=== PATIENT | female | born 1965 | race Caucasian/White ===

== ENCOUNTER 2020-03-06 10:33 | Emergency (ER) | payer SELFPAY ==
--- NOTE | 2020-03-06 11:37 | RAD REPORT ---
EXAM DESCRIPTION: RAD -Hand Left 3 View - 03/06/2020 11:19 am CLINICAL HISTORY: Left hand pain status post injury FINDINGS: No fracture or dislocation is seen.
--- NOTE | 2020-03-06 11:45 | EDPHYS ---
Physician Documentation [facility] Name: Nafisa Paul Age: 54 yrs Sex: Female : 1965 Arrival Date: 03/06/2020 Time: 10:35 Bed 13 Private MD: Baljeet Larsen HPI: 03/06 11:00 This 54 yrs old Female presents to ER via Ambulatory with complaints of cp Finger Injury. 11:00 The patient or guardian reports injury. The complaints affect the left hand. Context: cp resulted from a crush injury, by a car door. Onset: The symptoms/episode began/occurred 2 day(s) ago. Associated signs and symptoms: Pertinent negatives: cyanosis distally, decreased sensation distally. 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 - Social history:: Smoking status: . ROS: 11:05 MS/extremity: Positive for contusion, ecchymosis, pain, of the left hand. cp 11:05 Constitutional: Negative for fever. cp 11:05 Neuro: Negative for numbness. 11:05 All other systems are negative. Exam: 11:10 Constitutional: The patient appears in no acute distress, alert, awake, well developed, cp well nourished. 11:10 Musculoskeletal/extremity: Extremities: grossly normal except: noted in the left hand: cp ecchymosis, pain, swelling, tenderness, left middle finger with painful ROM. Vital Signs: 10:38 BP 136 / 89; Pulse 58; Resp 17; Temp 97.8(TE); Pulse Ox 98% on R/A; Weight 88.45 kg tw2 (R); Height 5 ft. 5 in. (165.10 cm); Pain 3/10; 12:00 BP 137 / 71; Pulse 62; Resp 17; Temp 98; Pulse Ox 98% ; bp 10:38 Body Mass Index 32.45 (88.45 kg, 165.10 cm) tw2 MDM: 10:44 Patient medically screened. ko 11:00 Differential diagnosis: dislocation, closed fracture, contusion. cp 11:36 Test interpretation: by ED physician or midlevel provider: xrays of left hand negative cp for fracture. 11:45 Data reviewed: vital signs, nurses notes, radiologic studies, plain films. cp 11:45 Counseling: I had a detailed discussion with the patient and/or guardian regarding: the cp historical points, exam findings, and any diagnostic results supporting the discharge/admit diagnosis, radiology results, to return to the emergency department if symptoms worsen or persist or if there are any questions or concerns that arise at home. 03/06 10:54 Order name: XRAY Hand LEFT 3 View; Complete Time: 11:48 cp 03/06 11:48 Interpretation: Report reviewed. 03/06 11:36 Order name: Splint - Finger; Complete Time: 11:55 cp Administered Medications: 11:50 Drug: Ibuprofen 800 mg Route: PO; bp 12:09 Follow up: Response: Pain is decreased bp 11:50 Drug: Tylenol 1000 mg Route: PO; bp 12:09 Follow up: Response: Pain is decreased bp Disposition: 12:00 Chart complete. cp 03/07 06:53 Co-signature as Attending Physician, Baljeet Lyles MD I agree with the assessment and [facility] plan of care. Disposition: 03/06/20 11:45 Discharged to Home. Impression: Crushing injury of hand - left. - Condition is Stable. - Discharge Instructions: Crush Injury of the Hand. - Prescriptions for Ibuprofen 800 mg Oral Tablet - take 1 tablet by ORAL route every 8 hours As needed take with food; 30 tablet. Tramadol 50 mg Oral Tablet - take 1 tablet by ORAL route every 8 hours as needed; 12 tablet. - Medication Reconciliation Form, Thank You Letter, Antibiotic Education, Prescription Opioid Use form. - Follow up: Private Physician; When: 1 week; Reason: Worsening of condition. - Problem is new. - Symptoms have improved. Signatures: [facility] EDBaljeet Walker MD MD cha Page, Corey, PA PA cp Kusum Mcginnis, RN RN tw2 Eliseo Acosta, RN RN bp Corrections: (The following items were deleted from the chart) 03/06 11:38 11:37 This 54 yrs old Female presents to ER via Ambulatory with complaints of cp Finger Injury. cp 12:09 11:45 03/06/2020 11:45 Discharged to Home. Impression: Crushing injury of hand - left. bp Condition is Stable. Forms are Medication Reconciliation Form, Thank You Letter, Antibiotic Education, Prescription Opioid Use. Follow up: Private Physician; When: 1 week; Reason: Worsening of condition. Problem is new. Symptoms have improved. cp
--- NOTE | 2020-03-06 11:45 | ER ---
Nurse's Notes [facility] Name: Nafisa Paul Age: 54 yrs Sex: Female : 1965 Arrival Date: 03/06/2020 Time: 10:35 Bed 13 Private MD: Diagnosis: Crushing injury of hand-left Presentation: 03/06 10:38 Chief complaint: Patient states: my LEFT middle finger, i slammed it in a car door 2 tw2 days ago, i cant bend it it hurts, i have been wearing this splint since i did it. Coronavirus screen: At this time, the client does not indicate any symptoms associated with coronavirus-19. Ebola Screen: Patient denies travel to an Ebola-affected area in the 21 days before illness onset. Initial Sepsis Screen: Does the patient meet any 2 criteria? No. Patient's initial sepsis screen is negative. Does the patient have a suspected source of infection? No. Patient's initial sepsis screen is negative. Risk Assessment: Do you want to hurt yourself or someone else? Patient reports no desire to harm self or others. Onset of symptoms was March 06, 2020. 10:38 Method Of Arrival: Ambulatory tw2 10:38 Acuity: ALEJANDRO 4 tw2 Triage Assessment: 10:41 General: Appears in no apparent distress. Behavior is calm, cooperative, appropriate tw2 for age. Pain: Complains of pain in dorsal aspect of distal phalanx of left middle finger, dorsal aspect of middle phalanx of left middle finger, dorsal aspect of proximal phalanx of left middle finger, palmar aspect of distal phalanx of left middle finger, palmar aspect of middle phalanx of left middle finger and palmar aspect of proximal phalanx of left middle finger. Musculoskeletal: Range of motion: limited in DIP of left middle finger and PIP of left middle finger. Injury Description: Crush injury sustained to dorsal aspect of distal phalanx of left middle finger, dorsal aspect of middle phalanx of left middle finger, dorsal aspect of proximal phalanx of left middle finger, dorsal aspect of distal phalanx of left ring finger, dorsal aspect of middle phalanx of left ring finger, dorsal aspect of proximal phalanx of left ring finger, palmar aspect of distal phalanx of left ring finger, palmar aspect of middle phalanx of left ring finger, palmar aspect of proximal phalanx of left ring finger, palmar aspect of distal phalanx of left middle finger, palmar aspect of middle phalanx of left middle finger, palmar aspect of proximal phalanx of left middle finger and left ring fingernail. 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 - Social history:: Smoking status: . Screenin:45 Abuse screen: Denies threats or abuse. Denies injuries from another. Nutritional bp screening: No deficits noted. Tuberculosis screening: No symptoms or risk factors identified. Fall Risk None identified. Assessment: 10:45 General: SEE TRIAGE NOTE. bp 12:07 Reassessment: PT D/C HOME AMBULATORY, DX WITH CRUSH INJURY TO FINGER. bp Vital Signs: 10:38 BP 136 / 89; Pulse 58; Resp 17; Temp 97.8(TE); Pulse Ox 98% on R/A; Weight 88.45 kg tw2 (R); Height 5 ft. 5 in. (165.10 cm); Pain 3/10; 12:00 BP 137 / 71; Pulse 62; Resp 17; Temp 98; Pulse Ox 98% ; bp 10:38 Body Mass Index 32.45 (88.45 kg, 165.10 cm) tw2 ED Course: 10:35 Patient arrived in ED. ag3 10:39 Triage completed. tw2 10:40 Arm band placed on. tw2 10:43 Baljeet Brannon PA is [facility]. cp 10:43 Baljeet Lyles MD is Attending Physician. cp 10:45 Patient has correct armband on for positive identification. Bed in low position. Call bp light in reach. Side rails up X2. 10:46 Eliseo Acosta, RN is Primary Nurse. bp 11:19 XRAY Hand LEFT 3 View In Process Unspecified. EDMS 11:55 Aluminum finger splint applied to palmar aspect of middle phalanx of left ring finger, mh5 palmar aspect of proximal phalanx of left ring finger, palmar aspect of middle phalanx of left middle finger and palmar aspect of proximal phalanx of left middle finger. 12:00 No provider procedures requiring assistance completed. Patient did not have IV access bp during this emergency room visit. Administered Medications: 11:50 Drug: Ibuprofen 800 mg Route: PO; bp 12:09 Follow up: Response: Pain is decreased bp 11:50 Drug: Tylenol 1000 mg Route: PO; bp 12:09 Follow up: Response: Pain is decreased bp Outcome: 11:45 Discharge ordered by MD. cp 12:00 Discharged to home ambulatory. bp 12:00 Condition: stable 12:00 Discharge instructions given to patient, Instructed on discharge instructions, follow up and referral plans. medication usage, Demonstrated understanding of instructions, follow-up care, medications, splint care, Prescriptions given X 2. 12:09 Patient left the ED. bp Signatures: Dispatcher [employer] EDMS Baljeet Brannon PA PA cp Wise, Tara, RN RN tw2 Judy Koehler 5 Eliseo Acosta, RN RN bp Leonor Tavarez 3
[2020-03-06] MEDS ORDERED: ACETAMINOPHEN 500 MG TAB ONE (12:01)
[2020-03-06] MEDS ORDERED: IBUPROFEN 400 MG TAB ONE (12:02)
== END 2020-03-06 12:09 | disposition home or self-care (01) ==
LOC: ER 10:33
DX: S67.22XA Crushing injury of left hand, initial encounter (principal); W23.1XXA Caught, crushed, jammed, or pinched between stationary objects, initial encounter; Y93.9 Activity, unspecified; Y92.9 Unspecified place or not applicable; Z88.0 Allergy status to penicillin; Z88.1 Allergy status to other antibiotic agents; Z88.2 Allergy status to sulfonamides; Z88.8 Allergy status to other drugs, medicaments and biological substances; Z91.041 Radiographic dye allergy status; Z91.048 Other nonmedicinal substance allergy status
CPT/HCPCS: 99284

== ENCOUNTER 2020-03-20 05:21 | Inpatient (IN) | payer SELFPAY ==
--- OUTSIDE RECORDS SUMMARY | 2020-03-20 05:23 | XMS REPORT | Continuity of Care Document ---
:1965 Author Organization [facility] t Address [address] [place] [id number] Care Team Providers Name Role Phone Taras Juares Attending Clinician Problems This patient has no known problems. Allergies, Adverse Reactions, Alerts This patient has no known allergies or adverse reactions. Medications This patient has no known medications. Procedures This patient has no known procedures. Encounters Start End Encounter Admission Attending Care Care Encounter Source Date/Time Date/Time Type Type Clinicians Facility Department ID 2019-09-05 2019-09-05 Office Mallorie [facility] [id number] 08:17:09 09:06:29 Visit Dinorah Grajeda [employer] [id number] [facility] [id number] MATERNAL [id number] & CHILD [address] [place] [address] Results This patient has no known results.
[2020-03-20 06:06] LABS: Absolute Lymphocytes (CBC) 2.4 K/uL (0.7-4.9); Basophils % 0.4 % (0-1.3); Hematocrit 37.8 % (36.0-45.0); Lymphocytes % 42.1 % (15.3-44.8); MPV 8.8 fL (7.6-11.3); RBC Red Blood Cell Count 4.14 M/uL (3.86-4.86)
[2020-03-20 06:13] LABS: Protime INR 0.94
[2020-03-20] MEDS ORDERED: NA CHLORIDE 0.9% 1,000 ML ONE (06:17)
[2020-03-20 06:42] LABS: BUN Blood Urea Nitrogen 14 mg/dL (7-18); Bicarbonate 28 mmol/L (21-32); Glucose Level 107 mg/dL (74-106); Magnesium 2.5 mg/dL (1.8-2.4); Potassium 3.9 mmol/L (3.5-5.1); Sodium Level 144 mmol/L (136-145); Troponin (Emerg Dept Use Only) < 0.02 ng/mL (0.0-0.045)
[2020-03-20] MEDS ORDERED: ASPIRIN 81 MG CHEWABLE TABLET ONE (06:47)
--- NOTE | 2020-03-20 07:07 | ER ---
Nurse's Notes [facility] Name: Nafisa Paul Age: 54 yrs Sex: Female : 1965 Arrival Date: 03/20/2020 Time: 05:29 Bed 17 Private MD: Diagnosis: Weakness Presentation: 03/20 05:20 Chief complaint: EMS states: Pt reports blurry vision and generalized weakness. Started jb4 shaking about half way here. Reports having 3 alcoholic beverages tonight. VS 127/73, 95, 99%, 97.4, BGL 104. 05:20 Coronavirus screen: Client denies travel out of the [place] in the last 14 days. At this jb4 time, the client does not indicate any symptoms associated with coronavirus-19. Ebola Screen: No symptoms or risks identified at this time. An acute neurological deficit is present. The patients blood glucose was checked before arriving to the hospital and was found to be normal. Initial Sepsis Screen: Does the patient meet any 2 criteria? No. Patient's initial sepsis screen is negative. Does the patient have a suspected source of infection? No. Patient's initial sepsis screen is negative. Risk Assessment: Do you want to hurt yourself or someone else? Patient reports no desire to harm self or others. Onset of symptoms was March 20, 2020 at 02:00. Transition of care: patient was not received from another setting of care. 05:20 Method Of Arrival: EMS: [facility] jb4 05:20 Acuity: ALEJANDRO 2 jb4 Stroke Activation: Symtpom onset >3 hours and < 6 hours Physician: Stroke Attending; Name: Eliud; Notified At: 05:25; Arrived At: 05:25 Physician: Chief Stroke Resident; Name: ; Notified At: 05:25; Arrived At: Physician: Stroke Resident; Name: ; Notified At: 05:25; Arrived At: Physician: ED Attending; Name: ; Notified At: 05:25; Arrived At: Physician: ED Resident; Name: ; Notified At: 05:25; Arrived At: Historical: - Allergies: 05:20 Bactrim; jb4 05:20 Benadryl; jb4 05:20 Iodine; jb4 05:20 Iodinated Contrast Media - IV Dye; jb4 05:20 Levaquin; jb4 05:20 PENICILLINS; jb4 05:20 Phenergan; jb4 05:20 Sulfa (Sulfonamide Antibiotics); jb4 05:20 Zofran; jb4 - PMHx: 05:20 FACTOR V - BLOOD DISORDER; stroke; jb4 - PSHx: 05:20 Bladder surgery; left ankle; Fallopian tube reconstruction; Cholecystectomy; jb4 Appendectomy; - Immunization history:: Adult Immunizations up to date. - Social history:: Smoking status: Patient denies any tobacco usage or history of. Patient uses alcohol, occasionally. Patient/guardian denies using street drugs, Patient/guardian denies using alcohol, The patient lives with family. - Family history:: not pertinent. Screenin:00 Abuse screen: Denies threats or abuse. Denies injuries from another. Nutritional bp screening: No deficits noted. Tuberculosis screening: No symptoms or risk factors identified. Fall Risk No fall in past 12 months (0 pts). Secondary diagnosis (15 points) CVA, IV access (20 points). Ambulatory Aid- None/Bed Rest/Nurse Assist (0 pts). Gait- Normal/Bed Rest/Wheelchair (0 pts) Mental Status- Oriented to own ability (0 pts). Total Man Fall Scale indicates Low Risk Score (25-44 pts). Fall prevention measures have been instituted. Side Rails Up X 2 Placed close to Nursing Station Frequent Obs/Assesments occuring As available Patient and Family Educated on Fall Prevention Program and strategies. Assessment: 05:25 VAN Scoring: Arm Drift: Patients demonstrates NO arm weakness. Patient is VAN Negative. jb4 05:25 General: Appears in no apparent distress. uncomfortable, Behavior is cooperative, jb4 anxious, Pt reports having blurry vision that is worse on the left and the inability to see above her nose. PT is unable to track object moving in front of her. Pupils are PERRLA. Pt unable to move her legs but maintains sensation. Pt is shaking, reports not being able to stop. Pain: Denies pain. Neuro: Level of Consciousness is awake, alert, obeys commands, Oriented to person, place, time, situation, [employer] are weak bilaterally Weakness in bilateral hand(s) leg(s) foot/feet Speech with expressive aphasia noted, Facial symmetry appears normal, Pupils are PERRLA, Intact. Cardiovascular: Patient's skin is warm and dry. Respiratory: Airway is patent Respiratory effort is even, unlabored, Respiratory pattern is regular, symmetrical. GI: No signs and/or symptoms were reported involving the gastrointestinal system. : No signs and/or symptoms were reported regarding the genitourinary system. EENT: No signs and/or symptoms were reported regarding the EENT system. Derm: Skin is intact, Skin is pink, warm \T\ dry. Musculoskeletal: Circulation, motion, and sensation intact. Range of motion: intact in all extremities. 06:30 Reassessment: Patient appears in no apparent distress at this time. Patient and/or jb4 family updated on plan of care and expected duration. Pain level reassessed. Patient is alert, oriented x 3, equal unlabored respirations, skin warm/dry/pink. PT is now able to see above her nose, is able to track objects with her eyes, pupils remain PERRLA, shaking has decrease, speech has improved, remains unable to move her legs. Patient states symptoms have improved. 07:00 Reassessment: RECD REPORT FROM [facility]. 54YO WF P/W WEAKNESS AND TREMORS, H/O CVA. bp ADMIT INITIATED. 07:00 The patient has not been NPO before screening. The patient is alert, and able to follow bp commands. The patient does not exhibit slurred or garbled speech. The patient is not exhibiting difficulty speaking. The patient does not exhibit difficulty understanding words. The patient is able to swallow own secretions with no drooling or need for suction. Patient tolerated one teaspoon of water. No drooling, immediate coughing, gurgling, or clearing of the throat was noted. The patient tolerated 90mL of water. No drooling, immediate coughing, gurgling, or clearing of the throat was noted. The patient passed the bedside swallow screening. Oral medications may be given as ordered. Contact Physician for further diet orders. Provider notified of bedside swallow screening results: Makayla Kline MD. T-PA (Activase) Screening: Contraindications: Other: DEFERRED BY NEURO C/S. Neuro: Level of Consciousness is awake, alert, obeys commands, Oriented to Appropriate for age. 07:29 Reassessment: DR ARDON AT B/S FOR EVAL. bp 09:41 Reassessment: DAUGHTER: MARK [phone]. bp 10:00 Reassessment: PT TO [place]. Neuro: Level of Consciousness is awake, alert, obeys commands, bp Oriented to person, place, time, situation, Speech is normal, TREMORS RESOLVED AT THIS TIME. 12:00 Reassessment: PT CURRENTLY IN MRI. bp 13:00 Reassessment: Patient appears in no apparent distress at this time. No changes from bp previously documented assessment. Patient and/or family updated on plan of care and expected duration. Pain level reassessed. PT RETURNED FROM MRI. RESULTS PENDING FOR OFFICIAL DISPO. Vital Signs: 05:20 BP 126 / 74; Pulse 76; Resp 20; Pulse Ox 99% on R/A; jb4 07:00 BP 113 / 73; Pulse 69; Resp 16; Pulse Ox 98% ; bp 09:00 BP 101 / 55; Pulse 67; Resp 17; Pulse Ox 100% ; bp 11:00 BP 101 / 60; Pulse 78; Resp 16; Pulse Ox 95% ; bp 13:00 BP 122 / 67; Pulse 65; Resp 17; Pulse Ox 100% ; bp NIH Stroke Scale Scores: 05:25 NIHSS Score: 12 jb4 10:00 NIHSS Score: 0 bp ED Course: 05:20 Arm band placed on right wrist. jb4 05:29 Patient arrived in ED. ag3 05:30 Initial lab(s) drawn, by hi, sent to lab. Inserted saline lock: 20 gauge in right jb4 antecubital area, using aseptic technique. Blood collected. 05:33 Makayla Kline MD is Attending Physician. ma2 05:42 CT Stroke Brain w/o Contrast In Process Unspecified. EDMS 05:57 Que Sesay, RN is Primary Nurse. jb4 06:16 Triage completed. jb4 06:23 Stroke CXR 1 View In Process Unspecified. EDMS 07:00 Patient has correct armband on for positive identification. Bed in low position. Call bp light in reach. Side rails up X2. 07:06 Didier Ardon DO is Hospitalizing Provider. ma2 07:16 Primary Nurse role handed off by Que Sesay, RN bp 07:16 Eliseo Acosta, RN is Primary Nurse. bp 09:35 Chest Single View In Process Unspecified. EDMS 11:01 Extrem Venous W Compress Anselmo In Process Unspecified. EDMS 11:19 Carotid Artery Bilateral In Process Unspecified. EDMS 12:16 Brain Wo Cont In Process Unspecified. EDMS 18:06 No provider procedures requiring assistance completed. Patient admitted, IV remains in bp place. Administered Medications: 06:12 Drug: NS 0.9% 1000 ml Route: IV; Rate: 125 ml/hr; Site: right antecubital; jb4 18:06 Follow up: IV Status: Infusion continued upon admission bp 06:40 Drug: Aspirin Chewable Tablet 324 mg Route: PO; jb4 07:42 Follow up: Response: No adverse reaction bp Point of Care Testing: Blood Glucose: 05:20 Blood Glucose: 109 mg/dL; jb4 Ranges: Outcome: 07:06 Decision to Hospitalize by Provider. ma2 18:06 Admitted to Med/surg accompanied by tech, via wheelchair, room 216, with chart, Report bp called to ZAC SEE 18:06 Condition: stable 18:06 Instructed on the need for admit. 18:23 Patient left the ED. bp NIH Stroke Scale - NIH Stroke Score Date: 03/20/2020 Time: 05:25 Total Score = 12 1a. Level of Consciousness (LOC) - 0(Alert) 1b. Level of Consciousness (LOC) (Year \T\ Age) - 0(Both) 1c. LOC Commands (Open \T\ Closes Eyes/Resident Care Manager) - 0(Both) 2. Best Gaze (Lateral Gaze Paresis) - 1(Partial gaze palsy) 3. Visual Field Loss - 2(Complete hemianopia) 4. Facial Palsy - 0(Normal) 5a. Left Arm: Motor (10-second hold) - 0(No drift) 5b. Right Arm: Motor (10-second hold) - 0(No drift) 6a. Left Leg: Motor (5-second hold - always test supine) - 3(No effort against gravity) 6b. Right Leg: Motor (5-second hold - always test supine) - 3(No effort against gravity) 7. Limb Ataxia (finger/nose \T\ heel/alvarez - test with eyes open) - 2(Present in two limbs) 8. Sensory Loss (pinprick arms/legs/face) - 0(Normal) 9. Best Language: Aphasia (description/naming/reading) - 1(Mild to moderate aphasia) 10. Dysarthria (speech clarity - read or repeat words) - 0(Normal) 11. Extinction and Inattention (visual/tactile/auditory/spatial/personal) - 0(No abnormality) Initials: jb4 NIH Stroke Scale - NIH Stroke Score Date: 03/20/2020 Time: 10:00 Total Score = 0 1a. Level of Consciousness (LOC) - 0(Alert) 1b. Level of Consciousness (LOC) (Year \T\ Age) - 0(Both) 1c. LOC Commands (Open \T\ Closes Eyes/Resident Care Manager) - 0(Both) 2. Best Gaze (Lateral Gaze Paresis) - 0(Normal) 3. Visual Field Loss - 0(No visual loss) 4. Facial Palsy - 0(Normal) 5a. Left Arm: Motor (10-second hold) - 0(No drift) 5b. Right Arm: Motor (10-second hold) - 0(No drift) 6a. Left Leg: Motor (5-second hold - always test supine) - 0(No drift) 6b. Right Leg: Motor (5-second hold - always test supine) - 0(No drift) 7. Limb Ataxia (finger/nose \T\ heel/alvarez - test with eyes open) - 0(Absent) 8. Sensory Loss (pinprick arms/legs/face) - 0(Normal) 9. Best Language: Aphasia (description/naming/reading) - 0(No aphasia) 10. Dysarthria (speech clarity - read or repeat words) - 0(Normal) 11. Extinction and Inattention (visual/tactile/auditory/spatial/personal) - 0(No abnormality) Initials: bp Signatures: Dispatcher [employer] EDMS Que Sesay RN RN jb4 Eliseo Acosta, ESA RN bp Makayla Kline MD MD ma2 Leonor Tavarez ag3
--- NOTE | 2020-03-20 07:07 | EDPHYS ---
Physician Documentation [facility] [place] Name: Nafisa Paul Age: 54 yrs Sex: Female : 1965 Arrival Date: 03/20/2020 Time: 05:29 Bed 17 Private MD: ED Physician Makayla Kline HPI: 03/20 07:00 This 54 yrs old Female presents to ER via EMS with complaints of Weakness. ma2 07:00 The patient presents to the emergency department with weakness of the a speech or ma2 higher order brain function problem. Onset: The symptoms/episode began/occurred suddenly, 4 hour(s) ago. Associated signs and symptoms: Pertinent negatives: dizziness, neck stiffness, seizure. Severity of symptoms: At their worst the symptoms were moderate in the emergency department the symptoms have improved. Patient's baseline: Neuro: alert and fully oriented, Speech: normal. Current symptoms: dysphasia, visual disturbance. The patient has experienced similar episodes in the past. 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 her symptoms are rapidly improving . Historical: - Allergies: 05:20 Bactrim; jb4 05:20 Benadryl; jb4 05:20 Iodine; jb4 05:20 Iodinated Contrast Media - IV Dye; jb4 05:20 Levaquin; jb4 05:20 PENICILLINS; jb4 05:20 Phenergan; jb4 05:20 Sulfa (Sulfonamide Antibiotics); jb4 05:20 Zofran; jb4 - PMHx: 05:20 FACTOR V - BLOOD DISORDER; stroke; jb4 - PSHx: 05:20 Bladder surgery; left ankle; Fallopian tube reconstruction; Cholecystectomy; jb4 Appendectomy; - Immunization history:: Adult Immunizations up to date. - Social history:: Smoking status: Patient denies any tobacco usage or history of. Patient uses alcohol, occasionally. Patient/guardian denies using street drugs, Patient/guardian denies using alcohol, The patient lives with family. - Family history:: not pertinent. ROS: 07:00 Constitutional: Negative for fever, chills, and weight loss. ma2 07:00 All other systems are negative. Exam: 07:00 Constitutional: This is a well developed, well nourished patient who is awake, alert, ma2 and in no acute distress. Head/Face: Normocephalic, atraumatic. Eyes: Pupils equal round and reactive to light, extra-ocular motions intact. Lids and lashes normal. Conjunctiva and sclera are non-icteric and not injected. Cornea within normal limits. Periorbital areas with no swelling, redness, or edema. ENT: Nares patent. No nasal discharge, no septal abnormalities noted. Tympanic membranes are normal and external auditory canals are clear. Oropharynx with no redness, swelling, or masses, exudates, or evidence of obstruction, uvula midline. Mucous membranes moist. Neck: Trachea midline, no thyromegaly or masses palpated, and no cervical lymphadenopathy. Supple, full range of motion without nuchal rigidity, or vertebral point tenderness. No Meningismus. Chest/axilla: Normal chest wall appearance and motion. Nontender with no deformity. No lesions are appreciated. Cardiovascular: Regular rate and rhythm with a normal S1 and S2. No gallops, murmurs, or rubs. Normal PMI, no JVD. No pulse deficits. Respiratory: Lungs have equal breath sounds bilaterally, clear to auscultation and percussion. No rales, rhonchi or wheezes noted. No increased work of breathing, no retractions or nasal flaring. Abdomen/GI: Soft, non-tender, with normal bowel sounds. No distension or tympany. No guarding or rebound. No evidence of tenderness throughout. MS/ Extremity: Pulses equal, no cyanosis. Neurovascular intact. Full, normal range of motion. Neuro: Awake and alert, GCS 15, oriented to person, place, time, and situation. Cranial nerves II-XII grossly intact. charging plug placer is 2/2 bilateral however arm and elbows are 5/5 bilaterally, she is uncoopertaive with LE exam, she has slurred speach, smelled alcohol and crying.. gait not tested Vital Signs: 05:20 BP 126 / 74; Pulse 76; Resp 20; Pulse Ox 99% on R/A; jb4 07:00 BP 113 / 73; Pulse 69; Resp 16; Pulse Ox 98% ; bp 09:00 BP 101 / 55; Pulse 67; Resp 17; Pulse Ox 100% ; bp 11:00 BP 101 / 60; Pulse 78; Resp 16; Pulse Ox 95% ; bp 13:00 BP 122 / 67; Pulse 65; Resp 17; Pulse Ox 100% ; bp NIH Stroke Scale Scores: 05:25 NIHSS Score: 12 jb4 10:00 NIHSS Score: 0 bp MDM: 05:33 Patient medically screened. [facility] 07:00 Data reviewed: vital signs, nurses notes, lab test result(s), EKG, radiologic studies, [facility] ct does not show any abnormality, she is not a candidate for tpa as her deficits are not consistent with clinical stroke and her symptoms are rapidly improving, plan discussed and agreed by dr. caballero.. . 07:12 ED course: this is not clinically stroke and therefore no NIHS applicable here.. . md03/20 05:34 Order name: Troponin (emerg Dept Use Only); Complete Time: 07:06 [facility] 03/20 05:34 Order name: Magnesium; Complete Time: 07:06 [facility] 03/20 05:34 Order name: Basic Metabolic Panel; Complete Time: 07:06 md03/20 05:34 Order name: CBC with Diff; Complete Time: 07:06 md03/20 05:34 Order name: Protime (+inr); Complete Time: 07:06 [facility] 03/20 05:34 Order name: Ptt, Activated; Complete Time: 07:06 md03/20 05:41 Order name: UDS [facility] 03/20 06:04 Order name: Glucose, Ancillary Testing; Complete Time: 06:09 [facility] 03/20 06:24 Order name: ETOH Level [facility] 03/20 09:16 Order name: Anti-Thrombin III Activity [facility] 03/20 09:16 Order name: C-ANCA Anti-Proteinase 3 [facility] 03/20 09:16 Order name: Cardiolipin Antibodies G,M [facility] 03/20 09:18 Order name: Factor V Leiden Mutation [facility] 03/20 09:18 Order name: Folic Acid, (Folate) [facility] 03/20 09:18 Order name: Homocysteine [facility] 03/20 09:18 Order name: Miscellaneous Test Lab [facility] 03/20 09:18 Order name: P-ANCA Anti-Myeloperoxidase Ab [facility] 03/20 09:18 Order name: Protein C Antigen [facility] 03/20 09:18 Order name: Protein Electo w/M Eduar Serum [facility] 03/20 09:18 Order name: Protein S (Total [facility] 03/20 09:18 Order name: PROTHROMBIN GENE ANALYSIS (F2) [facility] 03/20 09:18 Order name: RPR [facility] 03/20 09:18 Order name: Vitamin B12 Level [facility] 03/20 09:18 Order name: Vitamin D, 25 ([place]), TOTAL [facility] 03/20 09:18 Order name: CBC with Automated Diff [facility] 03/20 09:18 Order name: CBC with Automated Diff [facility] 03/20 09:18 Order name: Comprehensive Metabolic Panel [facility] 03/20 09:18 Order name: Comprehensive Metabolic Panel [facility] 03/20 09:18 Order name: Lipid Profile [facility] 03/20 05:34 Order name: CT Stroke Brain w/o Contrast [facility] 03/20 05:34 Order name: Stroke CXR 1 View [facility] 03/20 05:34 Order name: Accucheck; Complete Time: 07:12 [facility] 03/20 05:34 Order name: Cardiac monitoring; Complete Time: 07:13 [facility] 03/20 05:34 Order name: EKG - Nurse/Tech; Complete Time: 07:13 [facility] 03/20 05:34 Order name: IV Saline Lock; Complete Time: 07:13 [facility] 03/20 05:34 Order name: Labs collected and sent; Complete Time: 07:13 [facility] 03/20 05:34 Order name: NPO; Complete Time: 07:13 [facility] 03/20 05:34 Order name: O2 Per Protocol; Complete Time: 07:13 [facility] 03/20 05:34 Order name: O2 Sat Monitoring; Complete Time: 07:13 [facility] 03/20 09:16 Order name: Brain Wo Cont [facility] 03/20 09:16 Order name: Carotid Artery Bilateral [facility] 03/20 09:18 Order name: Patient Safety Orders [facility] 03/20 09:18 Order name: Physical Therapy Consult [facility] 03/20 09:18 Order name: Social Service Consult [facility] 03/20 09:18 Order name: Speech Therapy Consult [facility] 03/20 09:18 Order name: NPO [facility] 03/20 09:18 Order name: Echo with Doppler [facility] 03/20 09:18 Order name: EKG Electrocardiogram [facility] 03/20 09:18 Order name: Lipid Profile [facility] 03/20 09:18 Order name: Magnesium [facility] 03/20 09:18 Order name: Magnesium [facility] 03/20 09:18 Order name: T4,Total [facility] 03/20 09:18 Order name: T4,Total [facility] 03/20 09:18 Order name: Thyroid Stimulating Hormone [facility] 03/20 09:18 Order name: Thyroid Stimulating Hormone [facility] 03/20 09:18 Order name: Extrem Venous W Compress Anselmo [facility] 03/20 09:35 Order name: Chest Single View [facility] 03/20 05:34 Order name: Stroke Swallow Screen; Complete Time: 07:13 ma2 03/20 05:35 Order name: Urine Dipstick-Ancillary (obtain specimen); Complete Time: 07:38 ma2 Administered Medications: 06:12 Drug: NS 0.9% 1000 ml Route: IV; Rate: 125 ml/hr; Site: right antecubital; jb4 18:06 Follow up: IV Status: Infusion continued upon admission bp 06:40 Drug: Aspirin Chewable Tablet 324 mg Route: PO; jb4 07:42 Follow up: Response: No adverse reaction bp Point of Care Testing: Blood Glucose: 05:20 Blood Glucose: 109 mg/dL; jb4 Ranges: Critical Glucose Levels:Adult <50 mg/dl or >400 mg/dl <40 mg/dl or >180 mg/dl Disposition: 03/20/20 07:06 Hospitalization ordered by Didier Wakefield for Observation. Preliminary diagnosis is Weakness. - Bed requested for Telemetry/MedSurg (observation). - Status is Observation. bp - Condition is Stable. - Problem is new. - Symptoms are unchanged. NIH Stroke Scale - NIH Stroke Score Date: 03/20/2020 Time: 05:25 Total Score = 12 1a. Level of Consciousness (LOC) - 0(Alert) 1b. Level of Consciousness (LOC) (Year \T\ Age) - 0(Both) 1c. LOC Commands (Open \T\ Closes Eyes/Blending Tank Helper) - 0(Both) 2. Best Gaze (Lateral Gaze Paresis) - 1(Partial gaze palsy) 3. Visual Field Loss - 2(Complete hemianopia) 4. Facial Palsy - 0(Normal) 5a. Left Arm: Motor (10-second hold) - 0(No drift) 5b. Right Arm: Motor (10-second hold) - 0(No drift) 6a. Left Leg: Motor (5-second hold - always test supine) - 3(No effort against gravity) 6b. Right Leg: Motor (5-second hold - always test supine) - 3(No effort against gravity) 7. Limb Ataxia (finger/nose \T\ heel/alvarez - test with eyes open) - 2(Present in two limbs) 8. Sensory Loss (pinprick arms/legs/face) - 0(Normal) 9. Best Language: Aphasia (description/naming/reading) - 1(Mild to moderate aphasia) 10. Dysarthria (speech clarity - read or repeat words) - 0(Normal) 11. Extinction and Inattention (visual/tactile/auditory/spatial/personal) - 0(No abnormality) Initials: marco NIH Stroke Scale - NIH Stroke Score Date: 03/20/2020 Time: 10:00 Total Score = 0 1a. Level of Consciousness (LOC) - 0(Alert) 1b. Level of Consciousness (LOC) (Year \T\ Age) - 0(Both) 1c. LOC Commands (Open \T\ Closes Eyes/Blending Tank Helper) - 0(Both) 2. Best Gaze (Lateral Gaze Paresis) - 0(Normal) 3. Visual Field Loss - 0(No visual loss) 4. Facial Palsy - 0(Normal) 5a. Left Arm: Motor (10-second hold) - 0(No drift) 5b. Right Arm: Motor (10-second hold) - 0(No drift) 6a. Left Leg: Motor (5-second hold - always test supine) - 0(No drift) 6b. Right Leg: Motor (5-second hold - always test supine) - 0(No drift) 7. Limb Ataxia (finger/nose \T\ heel/alvarez - test with eyes open) - 0(Absent) 8. Sensory Loss (pinprick arms/legs/face) - 0(Normal) 9. Best Language: Aphasia (description/naming/reading) - 0(No aphasia) 10. Dysarthria (speech clarity - read or repeat words) - 0(Normal) 11. Extinction and Inattention (visual/tactile/auditory/spatial/personal) - 0(No abnormality) Initials: bp Signatures: Dispatcher [employer] EDKarlie Bowling, RN RN aa5 Que Sesay RN RN jb4 Judy Koehler 5 Eliseo Acosta, ESA SEE bp Makayla Kline MD MD ma2 Corrections: (The following items were deleted from the chart) 09:16 07:40 URINE DIPSTICK--ANCILLARY+U.LAB.BRZ ordered. EDDE EDMS 09:34 09:16 Chest Pa And Lat (2 Views) ordered. EDDE EDMS 13:57 07:06 Hospitalization Ordered by Didier Wakefield DO for Observation. Preliminary [facility] diagnosis is Weakness. Bed requested for Telemetry/MedSurg (observation). Status is Observation. Condition is Stable. Problem is new. Symptoms are unchanged. ma2 15:50 13:57 03/20/2020 07:06 Hospitalization Ordered by Didier Wakefield DO for aa5 Observation. Preliminary diagnosis is Weakness. Bed requested for [facility] ER HOLD. Status is Observation. Condition is Stable. Problem is new. Symptoms are unchanged. 5 18:23 15:50 03/20/2020 07:06 Hospitalization Ordered by Didier Wakefield DO for bp Observation. Preliminary diagnosis is Weakness. Bed requested for Telemetry/MedSurg (observation). Status is Observation. Condition is Stable. Problem is new. Symptoms are unchanged. aa5
[2020-03-20 07:54] LABS: Barbiturates NEGATIVE (NEGATIVE); Benzodiazepines NEGATIVE (NEGATIVE); Cocaine NEGATIVE (NEGATIVE); METHAMPHETAM NEGATIVE (NEGATIVE); Methadone NEGATIVE (NEGATIVE); Opiates NEGATIVE (NEGATIVE); Phencyclidine NEGATIVE (NEGATIVE); THC Cannibis NEGATIVE (NEGATIVE)
--- NOTE | 2020-03-20 08:07 | RAD REPORT ---
EXAM DESCRIPTION: Pat Single View03/20/2020 6:23 am CLINICAL HISTORY: Congestion COMPARISON: 2016 FINDINGS: The left base is hazy probably secondary to overlying soft tissue The lungs appear grossly clear. The heart is normal size IMPRESSION: No acute abnormalities displayed. If the patient's symptoms persist PA and lateral ches t series would be recommended
[2020-03-20] MEDS: ASPIRIN EC 81 MG TAB PO SCH (09:15)
[2020-03-20] MEDS: NA CHLORIDE 0.9% 1,000 ML IV SCH (09:15)
[2020-03-20] MEDS ORDERED: ACETAMINOPHEN 500 MG TAB PO PRN (09:15)
--- NOTE | 2020-03-20 09:40 | RAD REPORT ---
EXAM DESCRIPTION: Pat Single View03/20/2020 9:35 am CLINICAL HISTORY: CVA COMPARISON: March 20, 2020 FINDINGS: The lungs appear clear of acute infiltrate. The heart is normal size IMPRESSION: No acute abnormalities displayed
[2020-03-20 11:04] LABS: Folic Acid, (Folate) 3.9 ng/mL (3.1-17.5)
--- NOTE | 2020-03-20 11:38 | RAD REPORT ---
EXAM DESCRIPTION: USExtrem Venous W Compress Bil03/20/2020 11:01 am CLINICAL HISTORY: Leg swelling COMPARISON: 2014 FINDINGS: The common femoral, superficial femoral, popliteal and posterior tibial veins bilaterally are compressible and demonstrate augmentation. Doppler demonstrates good flow. IMPRESSION: No evidence of deep venous thrombosis involving either lower extremity.
--- NOTE | 2020-03-20 11:46 | RAD REPORT ---
EXAM DESCRIPTION: USCarotid Artery Bilateral03/20/2020 11:19 am CLINICAL HISTORY: Slurred speech COMPARISON: None FINDINGS: The velocity of the right internal carotid artery equals 76 cm/sec. The right ICA/CCA rati o 0.8 The velocity of the left internal carotid artery equals 120 cm/sec. The left ICA/CCA ratio 1.3 Plaque is not visualized within the carotid arteries The vertebral arteries demonstrate antegrade flow IMPRESSION: Unremarkable exam NASCET criteria used. Mild 0-49% stenosis Moderate 50-69% stenosis Severe 70-99% stenosis
--- NOTE | 2020-03-20 12:21 | P.HP ---
Certification for Inpatient Patient admitted to: Observation With expected LOS: <2 Midnights Patient will require the following post-hospital care: None Practitioner: I am a practitioner with admitting privileges, knowledge of patient current condition, hospital course, and medical plan of care. Services: Services provided to patient in accordance with Admission requirements found in Title 42 Section 412.3 of the Code of Federal Regulations Patient History Date of Service: 03/20/20 Primary Care Provider: None Reason for admission: Upper/lower extremity weakness, blurry vision, slurred speech History of Present Illness: 54-year-old female with history of factor 5 Leiden, prior TIA, alcohol abuse. Patient presented to the emergency room after reports of upper/lower extremity weakness bilateral, blurry vision, and slurred speech. She reports that she was dropping off her son at home around 3:00 a.m. after she got off work. 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 She started to notice increased weakness. Her symptoms got worse. She was brought in to the emergency room for further evaluation. Patient admitted drinking a shot of alcohol along with 1 cup of rum. Patient denied any significant chest pain. In the ER patient was evaluated. No focal deficits noted. CBC unremarkable. Sodium 144, potassium 3.9, BUN 14, creatinine 0.8 with a GFR 67. Glucose 107. Troponin unremarkable. Alcohol level was elevated at 162. CT head unremarkable for any acute changes. Chest x-ray unremarkable. Patient was admitted for further evaluation. When I saw the patient ER, patient smelled of alcohol. Patient still reported weakness to the upper lower extremity. Patient reports seen Neurology in the past. Patient only takes aspirin at home. Patient has no PCP. Allergies diphenhydramine HCl [From Benadryl] Allergy (Verified 02/21/15 23:31) Anaphylaxis Iodinated Contrast Media Allergy (Verified 02/21/15 23:31) Anaphylaxis iodine [Iodine] Allergy (Verified 02/21/15 23:31) Anaphylaxis levofloxacin [From Levaquin] Allergy (Verified 02/21/15 23:31) Anaphylaxis Penicillins Allergy (Verified 02/21/15 23:31) Anaphylaxis promethazine [From Phenergan] Allergy (Unverified 08/04/15 00:10) Unknown pseudoephedrine HCl [From Sudafed] Allergy (Verified 02/22/15 02:23) Unknown Sulfa (Sulfonamide Antibiotics) [Sulfa(Sulfonamide Antibiotics)] Allergy (Verified 02/21/15 23:31) Anaphylaxis sulfamethoxazole [From Bactrim] Allergy (Verified 02/21/15 23:31) Anaphylaxis trimethoprim [From Bactrim] Allergy (Verified 02/21/15 23:31) Anaphylaxis ondansetron HCl [From Zofran (as hydrochloride)] Adverse Reaction (Verified 02/21/15 23:36) Hives Dye Allergy (Uncoded 04/16/15 18:25) Unknown Zofran Allergy (Uncoded 04/16/15 18:25) Unknown Zofran (as Allergy (Uncoded 08/04/15 00:10) Unknown Home medications list reviewed: Yes Home Medications: Duloxetine [Cymbalta *] 30 mg PO DAILY 02/21/15 Omeprazole 40 mg PO DAILY 02/21/15 Pantoprazole Sodium 40 mg PO DAILY 02/21/15 Tramadol HCl 50 mg PO PRN 02/21/15 - Past Medical/Surgical History Diabetic: No -: Factor 5 Leiden -: Alcohol abuse -: GERD with hiatal hernia -: Bladder sx -: Fallopian tube reconstruction -: Cholecysectomy -: Appendectomy -: Left ankle sx Psychosocial/ Personal History: 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 - Family History Mother -: Other (see notes) (CVA) - Social History Smoking Status: Never smoker Alcohol use: Yes CD- Drugs: No Caffeine use: Yes Place of Residence: Home Review of Systems General: Weakness, Malaise, As per HPI Eyes: Unremarkable ENT: As per HPI Respiratory: Unremarkable Cardiovascular: Unremarkable Genitourinary: Unremarkable Musculoskeletal: As per HPI Integumentary: Unremarkable Neurological: Weakness, As per HPI Lymphatics: Unremarkable Physical Examination - Physical Exam General: Alert, In no apparent distress, Oriented x3, Cooperative HEENT: Atraumatic, Normocephalic, Mucous membr. moist/pink Neck: Supple Respiratory: Clear to auscultation bilaterally, Normal air movement Cardiovascular: Normal pulses, Regular rate/rhythm Gastrointestinal: Normal bowel sounds, Soft and benign, Non-distended, No tenderness, No masses, No rebound, No guarding Musculoskeletal: No erythema, No tenderness, No warmth Integumentary: No erythema, No warmth, No cyanosis Neurological: Abnormal strength (Weakness noted to the upper, lower extremity. Poor safety intern noted. Patient not able to stand. Weakness noted throughout.) - Studies Laboratory Data (last 24 hrs) 03/20/20 05:50: PT 11.1, INR 0.94, APTT 24.9 03/20/20 05:50: WBC 5.6, Hgb 13.0, Hct 37.8, Plt Count 204 03/20/20 05:50: Sodium 144, Potassium 3.9, BUN 14, Creatinine 0.88, Glucose 107 H, Magnesium 2.5 H Assessment and Plan - Plan Impression: Bilateral upper/lower extremity weakness, blurry vision, slurred speech suspect related to alcohol intoxication versus other History of factor 5 Leiden History of TIA Plan: Patient will be admitted for further evaluation and treatment. Case discussed with Neurology. Will need to evaluate for TIA, CVA, alcohol intoxication related illness, or other. Will obtain MRI to further evaluate. Patient not able to tolerate dye. Will continue with aspirin, thiamine, folic acid. Will obtain anti coagulable workup to confirm her history of factor 5 Leiden. Prior lab reviewed without evidence of factor 5 Leiden. Will monitor for alcohol withdrawal. Will obtain venous Doppler of the lower extremity as the patient reported some swelling to the lower extremity. Will obtain echocardiogram, carotid Doppler to further evaluate. Await recommendations from neurology. Will have physical therapy occupational therapy evaluate. Will have speech eval uate for swallowing difficulty. Will continue to reassess and monitor. Will try to obtain more information from family. Anticipate improvement over the next 24-48 hrs. Discharge Plan: Home Plan to discharge in: 48 Hours - Advance Directives Does patient have a Living Will: No Does patient have a Durable POA for Healthcare: No - Code Status/Comfort Care Code Status Assessed: Yes (full code) Time Spent Managing Pts Care (In Minutes): 55
--- NOTE | 2020-03-20 13:14 | RAD REPORT ---
EXAM DESCRIPTION: MRI - Brain Wo Cont - 03/20/2020 12:16 pm CLINICAL HISTORY: Slurred speech COMPARISON: Head CT March 20, 2020 TECHNIQUE: Axial, sagittal, and coronal magnetic images of the brain were obtained. Contrast was not requested FINDINGS: No significant abnormal signal is present within the brain. Diffusion-weighted/ADC mapping does not reveal evidence of acute infarction. The ventricles are normal caliber. An extra-axial fluid collection is not present Fluid within the sinuses/mastoids is not noted IMPRESSION: No acute abnormality is displayed
[2020-03-20] MEDS: THIAMINE HCL 100 MG TABLET PO SCH (13:45)
[2020-03-20] MEDS: MULTIVITAMIN TAB PO SCH (13:45)
[2020-03-20] MEDS: FOLIC ACID 1 MG TABLET PO SCH (14:00)
[2020-03-20] MEDS: ENOXAPARIN 40 MG/0.4 ML SQ SCH (14:00)
[2020-03-20 14:59] VITALS: BMI 31.6
[2020-03-20] MEDS ORDERED: THIAMINE HCL 100 MG TABLET ONE (15:41)
[2020-03-20] MEDS ORDERED: MULTIVITAMIN TAB PO ONE (15:41)
[2020-03-20] MEDS ORDERED: ASPIRIN EC 81 MG TAB PO ONE (15:42)
[2020-03-20] MEDS ORDERED: FOLIC ACID 1 MG TABLET ONE (15:42)
[2020-03-20] MEDS ORDERED: ENOXAPARIN 40 MG/0.4 ML SQ ONE (15:42)
[2020-03-20] MEDS ORDERED: INFLUENZA VACCINE (for 3y+) 0.5 ML DOSE IMVAC ONE (16:00)
--- NOTE | 2020-03-20 17:14 | EKG ---
Test Date: 2020-03-20 Test Time: 06:00:34 Manager Bench: BREANNA MEASUREMENT RESULTS: Intervals: Rate: 66 AK: 154 QRSD: 70 QT: 438 QTc: 459 Walton: P: 8 AK: 154 QRS: 55 T: 57 INTERPRETIVE STATEMENTS: Normal sinus rhythm Junctional ST depression, probably normal Borderline ECG Compared to ECG 02/22/2015 07:07:35 ST (T wave) deviation now present Sinus bradycardia no longer present Electronically Signed On 03-20-20 17:12:51 NOTEREADER by Valdez Tello
--- NOTE | 2020-03-20 17:41 | RAD REPORT ---
EXAM DESCRIPTION: CT - Ct Stroke Brain Wo Cont - 03/20/2020 6:58 am CLINICAL HISTORY: CONFUSED COMPARISON: None. TECHNIQUE: CT HEAD WITHOUT IV CONTRAST on 03/20/2020 5:34 AM CHILDREN'S [employer]TER[employer] This exam was performed according to our departmental dose-optimization program, which includes autom ated exposure control, adjustment of the mA and/or kV according to patient size and/or use of iterati ve reconstruction technique. FINDINGS: There is no acute hemorrhage, mass effect or midline shift. Ellsworth-white differentiation is preserved. There is no hydrocephalus. There is no significant volume loss for age. The calvarium is intact. Orbits and globes are unremarkable. The paranasal sinuses are clear. Mastoid air cells are clear. IMPRESSION: No acute intracranial findings. Electronically signed by: Jeremiah Pace MD 03/20/2020 5:48 AM CH[employer]DR[employer]S [employer] Due to temporary technical issues with the PACS/Fluency reporting system, reports are being signed by the in house radiologists without review as a courtesy to insure prompt reporting. The interpreting radiologist is fully responsible for the content of the report.
[2020-03-20] MEDS ORDERED: ATORVASTATIN 20 MG TAB PO SCH (21:00)
[2020-03-21] MEDS: NA CHLORIDE 0.9% 1,000 ML IV SCH (00:44)
[2020-03-21 00:53] LABS: RPR (Rapid Plasma Reagin) NON-REACT (NON-REACT)
[2020-03-21 06:08] LABS: Absolute Lymphocytes (CBC) 2.5 K/uL (0.7-4.9); Basophils % 0.4 % (0-1.3); Hematocrit 36.3 % (36.0-45.0); Lymphocytes % 49.1 % (15.3-44.8); MPV 9.5 fL (7.6-11.3); RBC Red Blood Cell Count 3.88 M/uL (3.86-4.86)
--- NOTE | 2020-03-21 08:20 | ECHO ---
HEIGHT: 5 ft 5 in WEIGHT: 190 lb 0 oz DATE OF STUDY: 03/20/[address]: Didier Wakefield DO 2-DIMENSIONAL: YES M.MODE: YES DOPPLER: YES COLOR FLOW: YES TDS: PORTABLE: DEFINITY: BUBBLE STUDY: DIAGNOSIS: SLURRED SPEECH, ABNORMALVISION, WEAKNESS CARDIAC HISTORY: CATHERIZATION: NO SURGERY: NO PROSTHETIC VALVE: NO PACEMAKER: NO MEASUREMENTS (cm) DIASTOLIC (NORMALS) SYSTOLIC (NORMALS) IVSd 1.0 (0.6-1.2) LA Diam 3.2 (1.9-4.0) LVEF 66% LVIDd 4.1 (3.5-5.7) LVIDs 2.6 (2.0-3.5) %FS 36% LVPWd 1.1 (0.6-1.2) Ao Diam 2.8 (2.0-3.7) 2 DIMENSIONAL ASSESSMENT: RIGHT ATRIUM: NORMAL LEFT ATRIUM: NORMAL RIGHT VENTRICLE: NORMAL LEFT VENTRICLE: NORMAL TRICUSPID VALVE: NORMAL MITRAL VALVE: NORMAL PULMONIC VALVE: NORMAL AORTIC VALVE: NORMAL PERICARDIAL EFFUSION: NONE AORTIC ROOT: NORMAL LEFT VENTRICULAR WALL MOTION: NORMAL DOPPLER/COLOR FLOW: NORMAL COMMENTS: NORMAL 2-DIMENSIONAL ECHOCARDIOGRAM WITH DOPPLER. NO VEGETATION. NO THROMBUS. TECHNOLOGIST: KYLAH PAYNE
[2020-03-21 08:23] LABS: Albumin 3.1 g/dL (3.4-5.0); Bilirubin Total 0.6 mg/dL (0.2-1.0); Magnesium 2.1 mg/dL (1.8-2.4); Potassium 3.8 mmol/L (3.5-5.1); Protein, Total 6.7 g/dL (6.4-8.2); Thyroid Stimulating Hormone 1.34 uIU/mL (0.360-3.740)
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
[2020-03-21 08:36] LABS: T4,Total 9.1 ug/dL (4.8-13.9)
[2020-03-21] MEDS: ASPIRIN EC 81 MG TAB PO SCH (08:59)
[2020-03-21] MEDS: THIAMINE HCL 100 MG TABLET PO SCH (08:59)
[2020-03-21] MEDS: FOLIC ACID 1 MG TABLET PO SCH (08:59)
[2020-03-21] MEDS: MULTIVITAMIN TAB PO SCH (08:59)
[2020-03-21] MEDS: ENOXAPARIN 40 MG/0.4 ML SQ SCH (09:00)
[2020-03-21] MEDS ORDERED: DULOXETINE 30 MG CAP PO SCH (09:00)
[2020-03-21] MEDS ORDERED: PANTOPRAZOLE 40MG TABLET PO SCH (09:00)
[2020-03-21 10:04] VITALS: O2SAT 94
--- NOTE | 2020-03-21 11:54 | RAD REPORT ---
EXAM DESCRIPTION: RAD - Spine Lumbar W obliques - 03/21/2020 11:11 am CLINICAL HISTORY: Back pain FINDINGS: Bones are osteoporotic. No fracture or dislocation Moderate narrowing L5-S1 disc. Osteoarthritis involves the facet joints of the lower lumbar spine. Prominent calcification pelvis probably calcified uterine fibroid
--- NOTE | 2020-03-21 11:58 | RAD REPORT ---
EXAM DESCRIPTION: RAD - C Spine W Obliques - 03/21/2020 11:10 am CLINICAL HISTORY: Neck pain FINDINGS: No fracture or dislocation is seen. No significant bone or joint abnormality noted Oblique views do not demonstrate bony encroachment upon the neural foramina
[2020-03-21] MEDS ORDERED: POTASSIUM CL SA 10 MEQ TAB PO ONE (12:00)
--- NOTE | 2020-03-21 12:13 | EKG ---
Test Date: 2020-03-20 Test Time: 06:01:04 Programming Internship: BREANNA MEASUREMENT RESULTS: Intervals: Rate: 65 [place]: 156 QRSD: 78 QT: 438 QTc: 455 [place]: P: 27 [place]: 156 QRS: 56 T: 58 INTERPRETIVE STATEMENTS: Normal sinus rhythm Normal ECG Compared to ECG 03/20/2020 06:00:34 ST (T wave) deviation no longer present Electronically Signed On 03-21-20 12:10:49 TURPENTINER by Valdez Tello
[2020-03-21 12:17] VITALS: BP 134/76; TEMP 98
[2020-03-22 12:25] LABS: Protein C Antigen 123 % (70-140)
[2020-03-24 05:55] LABS: Albumin, (SPE) 4.1 g/dL (3.8-4.8); Alpha-1-Globulins 0.2 g/dL (0.2-0.3); Alpha-2-Globulins 0.7 g/dL (0.5-0.9); Gamma Globulins 1.2 g/dL (0.8-1.7); INTERPRETATION REPORT
[2020-03-24 18:31] LABS: Prothrombin Gene Analysis Test REPORT
== END 2020-03-21 13:50 | disposition home or self-care (01) | DRG 897 ==
LOC: ER 05:21 → ERHOLD 14:10 → 2ND 18:04 → OBSVTOIN 03-21 08:20
PROVIDERS: ADMIT Family Medicine; ATTEND Family Medicine
DX: F10.129 Alcohol abuse with intoxication, unspecified (principal); E86.0 Dehydration; K21.9 Gastro-esophageal reflux disease without esophagitis; G89.29 Other chronic pain; M54.9 Dorsalgia, unspecified; M19.90 Unspecified osteoarthritis, unspecified site; Y90.6 Blood alcohol level of 120-199 mg/100 ml; Z88.1 Allergy status to other antibiotic agents; Z88.5 Allergy status to narcotic agent; Z88.8 Allergy status to other drugs, medicaments and biological substances; Z88.0 Allergy status to penicillin; Z91.041 Radiographic dye allergy status; Z86.73 Personal history of transient ischemic attack (TIA), and cerebral infarction without residual deficits; Z90.49 Acquired absence of other specified parts of digestive tract; Z79.899 Other long term (current) drug therapy; Z20.822 Contact with and (suspected) exposure to COVID-19
CPT/HCPCS: 36415; 70450; 70551; 71045; 72050; 72110; 80048; 80053; 80061; 80307; 80320; 81240; 81241; 82306; 82607; 82746; 82947; 83090; 83735; 84165; 84436; 84443; 84484; 85025; 85300; 85302; 85305; 85306; 85610; 85652; 85730; 86021; 86038; 86140; 86147; 86592; 92610; 93005; 93306; 93880; 93970; 96360; 96361; 97116; 97161; 99285; J1650; J7030; U0002

== ENCOUNTER 2022-03-24 09:06 | Emergency (ER) | payer SELFPAY ==
--- OUTSIDE RECORDS SUMMARY | 2022-03-24 09:11 | XMS REPORT | Continuity of Care Document ---
:1965 Author Organization [facility] t Address [address] [place] [address] Care Team Providers Name Role Phone PCP, PATIENT DOES NOT HAVE A Primary Care Physician Unavaila JASKARAN Gee Attending Clinician Unavailable Jaskaran Juares Attending Clinician [phone] GHADA GARDUNO Attending Clinician Unavailable Payers Payer Name Policy Type Policy Number Effective Date Expiration Date S janneth [employer] [id number] 2019 EUFEMIA 0-100% 00:00:00 Problems This patient has no known problems. Allergies, Adverse Reactions, Alerts Allergy Allergy Status Severity Reaction(s) Onset Inactive Treating Comm ents Source Name Type Date Date Clinician O[place]ANSET DRUG Active Anaphylaxis Uni vers BLANQUITA HCL 1-20 ity of (PF) 00:00: [address] LEVOFLOX DRUG Active Anaphylaxis 2015-03 Uni vers ACIN INGREDI 0-30 ity of 00:00: [place] 00 [facility] PSEUDOEP DRUG Active Anaphylaxis 2015-03 Uni vers HEDRINE INGREDI 0-30 ity of HCL 00:00: [place] 00 [facility] DIPHENHY DRUG Active Anaphylaxis Uni vers DRAMINE- 7-02 ity of ZINC 00:00: [place] ACETATE 00 [facility] SULFAMET DRUG Active Anaphylaxis Uni vers HOXAZOLE 2-01 ity of -TRIMETH 00:00: [place] OPRIM 00 [facility] IODINE Drug Active Anaphylaxis Unive rs AND Class 2-01 ity of IODIDE 00:00: [place] CONTAINI 00 [facility] PRODUCTS PENICILL Drug Active Anaphylaxis 2007-0 Uni vers INS Class 2-01 ity of 00:00: [place] 00 [facility] PROMETHA DRUG Active Anaphylaxis 2006- Uni vers ZINE HCL INGREDI 2-01 ity of 00:00: [place] 00 [facility] SULFA Drug Active Anaphylaxis 2006- Unive rs (SULFONA Class 2-01 ity of MIDE 00:00: [place] ANTIBIOT 00 Medical ICS) Branch Medications This patient has no known medications. Procedures This patient has no known procedures. Encounters Start End Encounter Admission Attending Care Care Encounter Source Date/Time Date/Time Type Type Clinicians Facility Department ID 2020-08-23 2020-08-23 Outpatient R [facility] [id number] Univers 13:00:00 13:00:00 [facility] 2020-08-22 2020-08-22 [facility] [id number] Univers 08:15:00 08:15:00 JASKARAN rosen o [facility] 2019-09-05 2019-09-05 [id number] 08:17:09 09:06:29 Visit Jaskaran Grajeda [employer] [id number] [facility] [id number] MATERNAL [id number] & CHILD [address] [place] [address] 2019-09-05 2019-09-05 Outpatient R L[facility] [id number] Univers 08:15:00 08:15:00 JASKARAN rosen o f [facility] 2019-07-18 2019-07-18 [facility] [id number] Univers 13:15:00 13:15:00 JASKARAN ity o f [facility] 2019-07-18 2019-07-18 Outpatient R LYNN [facility] [id number] Univers 13:15:00 13:15:00 JASKARAN rosen o f [facility] 2019-05-03 2019-05-03 [facility] [id number] Univers 06:23:58 23:59:00 GHADA [facility] Results This patient has no known results.
--- NOTE | 2022-03-24 09:53 | ER ---
Nurse's Notes [facility] Name: Nafisa Paul Age: 56 yrs Sex: Female : 1965 Arrival Date: 03/24/2022 Time: 09:09 Bed 11 Private MD: Diagnosis: Pain in right wrist;Tendonitis, TFCC pain Presentation: 03/24 09:16 Chief complaint: Patient states: R wrist pain x 1 month, worse since last night. ss Coronavirus screen: Client denies travel out of the [place] in the last 14 days. Ebola Screen: Patient denies exposure to infectious person. Patient denies travel to an Ebola-affected area in the 21 days before illness onset. Initial Sepsis Screen: Does the patient meet any 2 criteria? No. Patient's initial sepsis screen is negative. Does the patient have a suspected source of infection? No. Patient's initial sepsis screen is negative. Risk Assessment: Do you want to hurt yourself or someone else? Patient reports no desire to harm self or others. Onset of symptoms was January 2023. 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 - Social history:: Smoking status: Patient denies any tobacco usage or history of. Vital Signs: 09:16 BP 132 / 86; Pulse 87; Resp 16; Temp 97.9(TE); Pulse Ox 99% ; Weight 81.65 kg; Height 5 ss ft. 5 in. (165.10 cm); Pain 8/10; 09:23 BP 121 / 84; Pulse 93; Resp 17; Pulse Ox 97% on R/A; rs5 09:16 Body Mass Index 29.95 (81.65 kg, 165.10 cm) ED Course: 09:09 Patient arrived in ED. rg4 09:17 Triage completed. ss 09:17 Arm band placed on left wrist. ss 09:19 Skylar Lantigua FNP-C is [facility]. snw 09:19 Adis Gamez DO is Attending Physician. snw 09:50 Uriah Hui MD is Referral Physician. snw 09:53 June Pimentel, RN is Primary Nurse. iw Administered Medications: 10:12 Drug: predniSONE 40 mg Route: PO; iw 10:12 Drug: Pepcid (famotidine) 20 mg Route: PO; iw 10:12 Drug: Ketorolac 30 mg Route: IM; Site: right ventrogluteal; iw Outcome: 09:52 Discharge ordered by . snw 10:16 Discharged to home ambulatory. iw 10:16 Condition: good 10:16 Discharge instructions given to patient, Instructed on discharge instructions, follow up and referral plans. medication usage, Demonstrated understanding of instructions, follow-up care, medications, Prescriptions given X 1. 10:17 Patient left the ED. iw Signatures: Skylar Lantigua FNP-C [facility] [employer]-Cs[facility] June Pimentel, ESA SEE Sheyla Fay RN RN Becca Mcneil rg4 Richard Crockett rs5
--- NOTE | 2022-03-24 09:53 | EDPHYS ---
Physician Documentation [facility] Name: Nafisa Palu Age: 56 yrs Sex: Female : 1965 Arrival Date: 03/24/2022 Time: 09:09 Bed 11 Private MD: ED Physician Adis Gamez HPI: 03/24 10:00 This 56 yrs old Female presents to ER via Ambulatory with complaints of Wrist Injury. snw 10:00 The patient or guardian reports decreased range of motion, pain, swelling. The snw complaints affect the right wrist diffusely. Context: resulted from a repetitive motion, twisting. Onset: The symptoms/episode began/occurred acutely. Associated signs and symptoms:. The patient has not experienced similar symptoms in the past. The patient has not recently seen a physician. 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 - Social history:: Smoking status: Patient denies any tobacco usage or history of. ROS: 10:00 Constitutional: Negative for fever, chills, and weight loss, Eyes: Negative for injury, snw pain, redness, and discharge, ENT: Negative for injury, pain, and discharge, Neck: Negative for injury, pain, and swelling, Cardiovascular: Negative for chest pain, palpitations, and edema, Respiratory: Negative for shortness of breath, cough, wheezing, and pleuritic chest pain, Abdomen/GI: Negative for abdominal pain, nausea, vomiting, diarrhea, and constipation, Back: Negative for injury and pain, : Negative for injury, bleeding, discharge, and swelling, Skin: Negative for injury, rash, and discoloration, Neuro: Negative for headache, weakness, numbness, tingling, and seizure, Psych: Negative for depression, anxiety, suicide ideation, homicidal ideation, and hallucinations. 10:00 MS/extremity: Positive for decreased range of motion, pain, swelling, of the dorsal aspect of right wrist. Exam: 09:54 Hand exam: Exam is positive for edema, tenderness, ROM: limited active range of motion snw due to pain, limited passive range of motion due to pain, in the dorsal aspect of right wrist, Circulation is intact in all extremities. sensation intact. 09:54 Constitutional: This is a well developed, well nourished patient who is awake, alert, and in no acute distress. Head/Face: Normocephalic, atraumatic. Respiratory: Lungs have equal breath sounds bilaterally, clear to auscultation and percussion. No rales, rhonchi or wheezes noted. No increased work of breathing, no retractions or nasal flaring. Vital Signs: 09:16 BP 132 / 86; Pulse 87; Resp 16; Temp 97.9(TE); Pulse Ox 99% ; Weight 81.65 kg; Height 5 ss ft. 5 in. (165.10 cm); Pain 8/10; 09:23 BP 121 / 84; Pulse 93; Resp 17; Pulse Ox 97% on R/A; rs5 09:16 Body Mass Index 29.95 (81.65 kg, 165.10 cm) ss MDM: 09:19 Patient medically screened. snw 09:55 Data reviewed: vital signs, nurses notes. Test considered but Not performed: Other snw Details x-ray of wrist not indicated . Counseling: I had a detailed discussion with the patient and/or guardian regarding: the historical points, exam findings, and any diagnostic results supporting the discharge/admit diagnosis, the need for outpatient follow up, for definitive care. Special discussion: I have referred the patient to see his PCP for further evaluation of high blood pressure. Based on the history and exam findings, there is no indication for further emergent testing or inpatient evaluation. I discussed with the patient/guardian the need to see the orthopedic surgeon for further evaluation of the symptoms. ED course: Continue with current splint and begin gentle ROM exercises. Administered Medications: 10:12 Drug: predniSONE 40 mg Route: PO; iw 10:12 Drug: Pepcid (famotidine) 20 mg Route: PO; iw 10:12 Drug: Ketorolac 30 mg Route: IM; Site: right ventrogluteal; iw Disposition: 11:22 Co-signature as Attending Physician, Adis Gamez DO I was immediately available on-site ms3 in the Emergency Department for consultation in the care of the patient. Disposition Summary: 03/24/22 09:52 Discharge Ordered Location: Home snw Condition: Stable snw Diagnosis - Pain in right wrist snw - Tendonitis, TFCC pain snw Followup: snw - With: Emergency Department - When: As needed - Reason: Worsening of condition Followup: snw - With: Uriah Hui MD - When: 7 - 10 days - Reason: Recheck today's complaints, Continuance of care Discharge Instructions: - Discharge Summary Sheet snw - Joint Pain snw - Arthritis snw - Wrist Pain, Adult snw - How to Use Cold Therapy, [id number] snw - Wrist Sprain, Adult snw Forms: - Medication Reconciliation Form snw - Thank You Letter snw - Antibiotic Education snw - Prescription Opioid Use snw Prescriptions: - Mobic 7.5 mg Oral Tablet - take 1 tablet by ORAL route once daily take with food; 20 tablet; Refills: 0, snw Product Selection Permitted Signatures: Skylar Lantigua FNP-C [employer]-Csnw June Pimentel RN RN iw Smirch, Shelby, RN RN ss Sims, Marcus, DO DO ms3
[2022-03-24] MEDS ORDERED: predniSONE 20 MG TAB ONE (10:00)
[2022-03-24] MEDS ORDERED: KETOROLAC 30 MG/ML INJ ONE (10:01)
[2022-03-24] MEDS ORDERED: FAMOTIDINE 20 MG TAB ONE (10:01)
[2022-03-24 10:37] VITALS: TEMP 97.9
[2022-03-24 10:45] VITALS: BP 121/84; O2SAT 97
== END 2022-03-24 10:17 | disposition home or self-care (01) ==
LOC: ER 09:06
DX: M77.9 Enthesopathy, unspecified (principal)
CPT/HCPCS: 96372; 99283; J7512

== ENCOUNTER 2023-11-05 15:56 | Emergency (ER) | payer SELFPAY ==
[2023-11-05] MEDS ORDERED: HYDROMORPHONE HCL 1 MG/ML INJ ONE ×2 (16:13→17:38)
--- OUTSIDE RECORDS SUMMARY | 2023-11-05 16:19 | XMS REPORT | Continuity of Care Document ---
Author Name Unknown Address [address] [facility] [address] [place] [address] [facility] thconnect Address 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 Member Name Role Phone PCP, PATIENT DOES NOT HAVE A Primary Care Physic isaiah Unavailable JASKARAN BAILEY Attending Clinician Unavail able Jaskaran Juares Attending Clinician + GHADA GARDUNO Attending Clinician Unavailabl e Payers Payer Name Policy Type Policy Number Effective Date Expirati on Date Source [employer] EUFEMIA [id number]% [id number] 2019 00:00:00 Allergies, Adverse Reactions, Alerts Allergy Name Allergy Type Status Severity Reaction(s) Onset Date Inactive Date Treating Clinician Comments Source ONDANSET BLANQUITA HCL (PF) DRUG Active Anaphylaxis 03-21 00:00: 00 [facility] LEVOFLOX ACIN DRUG INGREDI Active Anaphylaxis 2015-03 00:00: 00 [facility] PSEUDOEP HEDRINE HCL DRUG INGREDI Active Anaphylaxis 2015-03 00:00: 00 [facility] DIPHENHY DRAMINE- ZINC ACETATE DRUG Active Anaphylaxis 08-31 00:00: 00 [facility] SULFAMET HOXAZOLE -TRIMETH OPRIM DRUG Active Anaphylaxis 2 00:00: 00 [facility] IODINE AND IODIDE CONTAINI NG PRODUCTS Drug Class Active Anaphylaxis 2 00:00: 00 [facility] PENICILL INS Drug Class Active Anaphylaxis 04-02 00:00: 00 [facility] PROMETHA ZINE HCL DRUG INGREDI Active Anaphylaxis 04-02 00:00: 00 [facility] SULFA (SULFONA MIDE ANTIBIOT ICS) Drug Class Active Anaphylaxis 04-02 00:00: 00 [facility] Encounters Start Date/Time End Date/Time Encounter Type Admission Type Attending Clinicians Care Facility Care Department Encounter ID Source 2020-08-23 13:00:00 2020-08-23 13:00:00 Outpatient R [facility] [id number] [facility] 2020-08-22 08:15:00 2020-08-22 08:15:00 Outpatient R JASKARAN BAILEY [facility] [id number] [facility] 2019-09-05 08:17:09 2019-09-05 09:06:29 Office Visit Jaskaran Bailey [facility] [employer]PHOL[employer] [facility]PRENTICE [facility] [id number] 2019-09-05 08:15:00 2019-09-05 08:15:00 Outpatient R JASKARAN BAILEY [facility] [id number] [facility] 2019-07-18 13:15:00 2019-07-18 13:15:00 Outpatient R JASKARAN BAILEY [facility] [id number] [facility] 2019-07-18 13:15:00 2019-07-18 13:15:00 Outpatient R JASKARAN BAILEY [facility] [id number] [facility] 2019-05-03 06:23:58 2019-05-03 23:59:00 Outpatient R GHADA GARDUNO [facility] [id number] [facility]
[2023-11-05 16:26] LABS: Absolute Lymphocytes (CBC) 2.4 K/uL (0.7-4.9); Absolute Monocytes 0.4 K/uL (0.1-1.3); Absolute Neutrophil 5.2 K/uL (1.8-8.0); Basophils % 0.3 % (0-1.3); Eosinophils % 0.6 % (0-4.4); Hematocrit 38.2 % (36.0-45.0); Hemoglobin 12.6 g/dL (12.0-15.0); Lymphocytes % 29.3 % (15.3-44.8); MCH 30.6 pg (27.0-35.0); MCHC 32.9 g/dL (32.0-36.0); MPV 8.7 fL (7.6-11.3); Monocytes % 5.2 % (3.3-12.3); Neutrophils % 64.6 % (41.7-73.7); Platelets 212 thou/uL (152-406); RBC Red Blood Cell Count 4.11 M/uL (3.86-4.86); Red Cell Distribution Width 14.9 % (12.1-15.2)
[2023-11-05 16:36] LABS: Anion Gap 8.7 mEq/L (5.0-15.0); Potassium 3.7 mEq/L (3.5-5.1)
--- NOTE | 2023-11-05 17:06 | RAD REPORT ---
EXAM DESCRIPTION: CT - CTHCSPWOC - 11/05/2023 4:25 pm CLINICAL HISTORY: TRAUMA COMPARISON: CT HEAD CSPINE MPR WO CONTRAST dated 04/16/2015 TECHNIQUE: Axial thin cut noncontrast CT images of the head were obtained. Axial thin cut noncontrast CT images of the cervical spine were obtained. Multiplanar reformatted images were generated and reviewed. All CT scans are performed using dose optimization technique as appropriate and may include automated exposure control or mA/KV adjustment according to patient size. FINDINGS: CT HEAD WITHOUT CONTRAST: No acute hemorrhage, hydrocephalus or extra-axial collection is identified.No areas of brain edema or midline shift. The paranasal sinuses and mastoids are clear.The calvarium is intact. CT CERVICAL SPINE WITHOUT CONTRAST: No fracture or subluxation.No prevertebral soft tissues swelling is identified. IMPRESSION: No acute traumatic intracranial or cervical spine findings.
--- NOTE | 2023-11-05 17:29 | RAD REPORT ---
EXAM DESCRIPTION: CT - Chest Abd Pelvis Wo Con - 11/05/2023 4:25 pm CLINICAL HISTORY: TRAUMA COMPARISON: Chest Single View dated 03/20/2020; Shoulder Left 2 View dated 11/05/2023 TECHNIQUE: Thin axial CT images of the chest, abdomen, and pelvis, performed following intravenous a dministration of iodinated contrast. Multiplanar reformats were generated and reviewed. All CT scans are performed using dose optimization technique as appropriate and may include automated exposure control or mA/KV adjustment according to patient size. FINDINGS: The lungs are clear.No pleural or pericardial effusion.No intrathoracic adenopathy. The liver, spleen, pancreas, adrenal glands and kidneys are within normal limits. Small sliding hiatal hernia. Status post cholecystectomy. No bowel obstruction, free air, free fluid or abscess. Retroverted uterus. Calcified fibroid near the fundus. No pathologic lymphadenopathy in the abdomen or pelvis. Comminuted left humeral head fracture. No other worrisome osseous finding. IMPRESSION: Comminuted left humeral head fracture. No other acute findings. Other incidental findings as above.
--- NOTE | 2023-11-05 17:35 | RAD REPORT ---
EXAM DESCRIPTION: RAD - Shoulder Left 2 View - 11/05/2023 4:45 pm CLINICAL HISTORY: trauma COMPARISON: Chest Abd Pelvis Wo Con dated 11/05/2023 TECHNIQUE: Internal and external rotation views of the left shoulder were obtained. FINDINGS: Mildly comminuted left humeral head fracture. No dislocation. AC joint is normal in appear ance. No acute or suspicious findings. IMPRESSION: Mildly comminuted left humeral head fracture.
--- NOTE | 2023-11-05 17:40 | EDPHYS ---
Physician Documentation [facility] Name: Nafisa Paul Age: 58 yrs Sex: Female : 1965 Arrival Date: 11/05/2023 Time: 15:56 Bed 4 Private MD: ED Physician Issa Vera HPI: 11/04 15:59 This 58 yrs old Female presents to ER via Unassigned with complaints of Fall Injury. sp3 16:01 58-year-old female with a history of prior CVA, factor V Leiden disorder, currently on sp3 aspirin now presents with mechanical ground-level fall with injury to the left shoulder, chest and possibly head. Unknown LOC. Patient denies any headache, neck pain, back pain, right-sided chest pain, abdominal pain, low back pain, extremity pain other than the left shoulder the left side of the chest. Patient also complains of numbness and tingling along the left upper extremity. She still has good motor function of the hand. ROS otherwise negative.. Historical: - Allergies: 16:00 Bactrim; ph 16:00 Benadryl; ph 16:00 Iodinated Contrast Media - IV Dye; ph 16:00 Iodine; ph 16:00 Levaquin; ph 16:00 PENICILLINS; ph 16:00 Phenergan; ph 16:00 Sulfa (Sulfonamide Antibiotics); ph 16:00 Zofran; ph - Home Meds: 16:00 aspirin 81 mg Oral TbEC 1 tab once daily [Active]; ph - PMHx: 16:00 FACTOR V - BLOOD DISORDER; stroke; ph - Immunization history:: Adult Immunizations unknown. - Infectious Disease History:: Denies. - Immunization history: Last tetanus immunization: unknown. - Social history:: Smoking status: unknown. ROS: 16:02 Constitutional: Negative for fever, chills, and weight loss, Eyes: Negative for injury, sp3 pain, redness, and discharge, Neck: Negative for injury, pain, and swelling, Cardiovascular: Negative for chest pain, palpitations, and edema, Respiratory: Negative for shortness of breath, cough, wheezing, and pleuritic chest pain, Skin: Negative for injury, rash, and discoloration, Neuro: Negative for headache, weakness, numbness, tingling, and seizure, Psych: Negative for depression, anxiety, suicide ideation, homicidal ideation, and hallucinations, 16:02 All other systems are negative, Exam: 16:02 Constitutional: This is a well developed, well nourished patient who is awake, alert, sp3 and in no acute distress. Head/Face: Normocephalic, atraumatic. Eyes: Pupils equal round and reactive to light, extra-ocular motions intact. Lids and lashes normal. Conjunctiva and sclera are non-icteric and not injected. Cornea within normal limits. Periorbital areas with no swelling, redness, or edema. ENT: Nares patent. No nasal discharge, no septal abnormalities noted. External auditory canals are clear. Oropharynx with no redness, swelling, or masses, exudates, or evidence of obstruction, uvula midline. Mucous membranes moist. Neck: Trachea midline, no thyromegaly or masses palpated, and no cervical lymphadenopathy. Supple, full range of motion without nuchal rigidity, or vertebral point tenderness. No Meningismus. Cardiovascular: Regular rate and rhythm with a normal S1 and S2. No gallops, murmurs, or rubs. Normal PMI, no JVD. No pulse deficits. Respiratory: Lungs have equal breath sounds bilaterally, clear to auscultation and percussion. No rales, rhonchi or wheezes noted. No increased work of breathing, no retractions or nasal flaring. Abdomen/GI: Soft, non-tender, with normal bowel sounds. No distension or tympany. No guarding or rebound. No evidence of tenderness throughout. Back: No spinal tenderness. No costovertebral tenderness. Full range of motion. Skin: Warm, dry with normal turgor. Normal color with no rashes, no lesions, and no evidence of cellulitis. Neuro: Awake and alert, GCS 15, oriented to person, place, time, and situation. Cranial nerves II-XII grossly intact. Motor strength 5/5 in all extremities. Sensory grossly intact. Cerebellar exam normal. Normal gait. Psych: Awake, alert, with orientation to person, place and time. Behavior, mood, and affect are within normal limits. 16:02 Chest/axilla: Left upper chest tender to palpation along with lateral and anterior shoulder. Full range of motion not tested due to pain. Wrist and hand normal exam including motor, sensory and vascular. Normal capillary refill distally.. Vital Signs: 15:59 BP 115 / 68; Pulse 63; Resp 18; Temp 97.8; Pulse Ox 97% on R/A; ph 17:35 BP 122 / 79; Pulse 61; Resp 18; Pulse Ox 100% on R/A; ph 19:02 BP 118 / 78; Pulse 68; Resp 18; Temp 97.9; Pulse Ox 99% on R/A; ph [place]tor[place] Coma Score: 16:04 Eye Response: spontaneous(4). Motor Response: obeys commands(6). Verbal Response: ph oriented(5). Total: 15. 17:36 Eye Response: spontaneous(4). Motor Response: obeys commands(6). Verbal Response: ph oriented(5). Total: 15. 19:02 Eye Response: spontaneous(4). Motor Response: obeys commands(6). Verbal Response: ph oriented(5). Total: 15. Trauma Score (Adult): 16:04 Eye Response: spontaneous(1); Verbal Response: oriented(1); Motor Response: obeys ph commands(2); Systolic BP: > 89 mm Hg(4); Respiratory Rate: 10 to 29 per min(4); [place] Score: 15; Trauma Score: 12 17:36 Eye Response: spontaneous(1); Verbal Response: oriented(1); Motor Response: obeys ph commands(2); Systolic BP: > 89 mm Hg(4); Respiratory Rate: 10 to 29 per min(4); [place] Score: 15; Trauma Score: 12 19:02 Eye Response: spontaneous(1); Verbal Response: oriented(1); Motor Response: obeys ph commands(2); Systolic BP: > 89 mm Hg(4); Respiratory Rate: 10 to 29 per min(4); [place] Score: 15; Trauma Score: 12 MDM: 15:59 Patient medically screened. sp3 16:03 Data reviewed: vital signs, nurses notes, lab test result(s), radiologic studies. ED sp3 course: 58-year-old female with PMH above on aspirin with mechanical ground-level fall. Will obtain CT scan of the head, C-spine, chest abdomen pelvis on noncontrast traumagram along with x-ray of the left shoulder. Dilaudid and Zofran for symptomatic control of pain. Differential diagnosis includes contusion versus fracture versus pneumothorax versus pulmonary contusion versus other. I am not highly suspicious of medical prodrome prior to the event, cardiac contusion, intracranial hemorrhage or any other critical process. Disposition pending workup and patient course.. 17:38 ED course: CT scan negative for any significant findings except for left humeral head sp3 comminuted fracture which coupled with x-ray findings. Will place patient in a splint and have her follow-up with orthopedics who she says she wants to find somebody in [place]. Second dose of Dilaudid given. Patient will be sent home on tramadol.. 11/04 16:00 Order name: Basic Metabolic Panel; Complete Time: 16:37 sp3 11/04 16:00 Order name: CBC with Diff; Complete Time: 16:37 sp3 11/04 16:00 Order name: Shoulder Left (2 View) XRAY; Complete Time: 17:36 sp3 11/04 16:14 Order name: Head C Spine Mpr Wo Con; Complete Time: 17:28 EDMS 11/04 16:16 Order name: Chest Abd Pelvis Wo Con; Complete Time: 17:36 EDMS 11/04 16:00 Order name: Labs collected and sent; Complete Time: 16:40 sp3 11/04 17:37 Order name: Sling; Complete Time: 18:07 sp3 Administered Medications: 16:20 Drug: HYDROmorphone IVP 1 mg IVP once Route: IVP; Site: right antecubital; ph 19:02 Follow up: Response: No adverse reaction; RASS: Alert and Calm (0) ph 17:47 Not Given (Patient Refused; allergicc): ondansetron 4 mg IVP once; over 2 minutes ph 17:47 Drug: HYDROmorphone IVP 1 mg IVP once Route: IVP; Site: right antecubital; ph 19:02 Follow up: Response: No adverse reaction; Pain is decreased; RASS: Alert and Calm (0) ph Disposition Summary: 11/05/23 17:39 Discharge Ordered Notes: Location: Home sp3 Condition: Stable sp3 Diagnosis - Mechanical ground-level fall, left humeral head fracture sp3 Followup: sp3 - With: Private Physician - When: Upon discharge from the Emergency Department - Reason: Continuance of care Discharge Instructions: - Discharge Summary Sheet sp3 - Humerus Fracture Treated With Immobilization sp3 Forms: - Medication Reconciliation Form sp3 - Antibiotic Education sp3 - Prescription Opioid Use sp3 - Patient Portal Instructions sp3 - Leadership Thank You Letter sp3 Prescriptions: - Tramadol 50 mg Oral Tablet - take 1 tablet ORAL route every 8 hours as needed; 12 tablet; Refills: 0, sp3 Product Selection Permitted Signatures: Dispatcher [employer] EDKatlyn Savage RN RN ph Issa Vera MD MD sp3 Corrections: (The following items were deleted from the chart) 16:14 16:01 Head C Spine Cap Wo Con+CT.RAD.BRZ ordered. EDMS EDMS
--- NOTE | 2023-11-05 17:40 | ER ---
Nurse's Notes [facility] Name: Nafisa Paul Age: 58 yrs Sex: Female : 1965 Arrival Date: 11/05/2023 Time: 15:56 Bed 4 Private MD: Diagnosis: Mechanical ground-level fall, left humeral head fracture Presentation: 11/04 15:59 Chief complaint: EMS states: Slipped and fell on wet concrete, c/o pain to neck, back, ph and L shoulder, no LOC, c-collar in place. Coronavirus screen: Vaccine status: Patient reports receiving the 2nd dose of the covid vaccine. Ebola Screen: No symptoms or risks identified at this time. Initial Sepsis Screen: Does the patient meet any 2 criteria? No. Patient's initial sepsis screen is negative. Does the patient have a suspected source of infection? No. Patient's initial sepsis screen is negative. Risk Assessment: Do you want to hurt yourself or someone else? Patient reports no desire to harm self or others. Onset of symptoms was November 05, 2023. 15:59 [facility] 15:59 Acuity: ALEJANDRO 3 ph 16:05 Care prior to arrival: Cervical collar in place. Mechanism of Injury: Fall from ph standing position. Trauma event details: Injury occurred in the [facility], Injury occurred: at home. Injury occurred: November 05, 2023. Triage Assessment: 16:01 General: Appears in no apparent distress. uncomfortable, Behavior is calm, cooperative. ph Pain: Complains of pain in neck, back, and L shoulder. Neuro: Level of Consciousness is awake, alert, obeys commands, Oriented to person, place, time, situation. Cardiovascular: Capillary refill < 3 seconds in bilateral fingers Patient's skin is warm and dry. Respiratory: Airway is patent Respiratory effort is even, unlabored, Respiratory pattern is regular, symmetrical. Musculoskeletal: Circulation, motion, and sensation intact. Range of motion: limited in left shoulder. Trauma Activation: Not Applicable Physician: ED Physician; Name: ; Notified At: ; Arrived At: Physician: General Surgeon; Name: ; Notified At: ; Arrived At: Physician: Radiology; Name: ; Notified At: ; Arrived At: Physician: Respiratory; Name: ; Notified At: ; Arrived At: Physician: Lab; Name: ; Notified At: ; Arrived At: Historical: - Allergies: 16:00 Bactrim; ph 16:00 Benadryl; ph 16:00 Iodinated Contrast Media - IV Dye; ph 16:00 Iodine; ph 16:00 Levaquin; ph 16:00 PENICILLINS; ph 16:00 Phenergan; ph 16:00 Sulfa (Sulfonamide Antibiotics); ph 16:00 Zofran; ph - Home Meds: 16:00 aspirin 81 mg Oral TbEC 1 tab once daily [Active]; ph - PMHx: 16:00 FACTOR V - BLOOD DISORDER; stroke; ph - Immunization history:: Adult Immunizations unknown. - Infectious Disease History:: Denies. - Immunization history: Last tetanus immunization: unknown. - Social history:: Smoking status: unknown. Screenin:04 [facility] ED Fall Risk Assessment (Adult) History of falling in the last 3 months, ph including since admission Yes- single mechanical fall (1 pt) Confusion or Disorientation No (0 pts) Intoxicated or Sedated No (0 pts) Impaired Gait No (0 pts) Mobility Assist Device Used No (0 pt) Altered Elimination No (0 pt) Score/Fall Risk Level 0 - 2 = Low Risk Oriented to surroundings, Maintained a safe environment, Hourly rounding (assess needs \T\ fall precautionary measures) done. Abuse screen: Denies threats or abuse. Denies injuries from another. Nutritional screening: No deficits noted. Tuberculosis screening: No symptoms or risk factors identified. Primary Survey: 16:02 NO uncontrolled hemorrhage observed. A: The client is awake and alert. The airway is ph patent. Breathing/Chest: Spontaneous respiratory effort, equal unlabored respirations, breath sounds clear bilaterally, regular pattern, symmetrical chest rise and fall. Circulation: No external hemorrhage present. Regular and strong central pulse, skin warm/dry/normal color. Disability Pupils are equal, round, reactive to light and accommodation. Exposure/Environment: There is no evidence of uncontrolled external bleeding. Obvious injury(ies) are noted at this time: L shoulder pain. 18:59 Reassessment Alertness and Airway: Awake and alert. The airway is patent. Breathing: ph Spontaneous respiratory effort, equal unlabored respirations, breath sounds clear bilaterally, regular pattern with symmetrical chest rise and fall. Circulation: No external hemorrhage noted. Regular and strong central pulse, skin warm/dry/normal color. Disability: Pupils Pupils are equal, round, reactive to light and accomodation. Secondary Survey: 16:03 HEENT: No deficits noted. Gastrointestinal: No deficits noted. : No signs and/or ph symptoms were reported regarding the genitourinary system. Musculoskeletal: Reports pain in neck, back, and L shoulder. Assessment: 16:02 General: Appears in no apparent distress. Behavior is calm, cooperative. Pain: ph Complains of pain in neck, back, and L shoulder. Neuro: Level of Consciousness is awake, alert, obeys commands, Oriented to person, place, time, situation. Vital Signs: 15:59 BP 115 / 68; Pulse 63; Resp 18; Temp 97.8; Pulse Ox 97% on R/A; ph 17:35 BP 122 / 79; Pulse 61; Resp 18; Pulse Ox 100% on R/A; ph 19:02 BP 118 / 78; Pulse 68; Resp 18; Temp 97.9; Pulse Ox 99% on R/A; ph [place] Coma Score: 16:04 Eye Response: spontaneous(4). Motor Response: obeys commands(6). Verbal Response: ph oriented(5). Total: 15. 17:36 Eye Response: spontaneous(4). Motor Response: obeys commands(6). Verbal Response: ph oriented(5). Total: 15. 19:02 Eye Response: spontaneous(4). Motor Response: obeys commands(6). Verbal Response: ph oriented(5). Total: 15. Trauma Score (Adult): 16:04 Eye Response: spontaneous(1); Verbal Response: oriented(1); Motor Response: obeys ph commands(2); Systolic BP: > 89 mm Hg(4); Respiratory Rate: 10 to 29 per min(4); Viktoria Score: 15; Trauma Score: 12 17:36 Eye Response: spontaneous(1); Verbal Response: oriented(1); Motor Response: obeys ph commands(2); Systolic BP: > 89 mm Hg(4); Respiratory Rate: 10 to 29 per min(4); [place] Score: 15; Trauma Score: 12 19:02 Eye Response: spontaneous(1); Verbal Response: oriented(1); Motor Response: obeys ph commands(2); Systolic BP: > 89 mm Hg(4); Respiratory Rate: 10 to 29 per min(4); [place] Score: 15; Trauma Score: 12 ED Course: 15:59 Patient arrived in ED. ph 15:59 Issa Vera MD is Attending Physician. sp3 16:00 Triage completed. ph 16:01 Arm band placed on Patient placed in an exam room, on a stretcher, on pulse oximetry. ph 16:04 Patient has correct armband on for positive identification. Bed in low position. Call ph light in reach. Side rails up X2. Pulse ox on. NIBP on. 16:05 Patient maintains SpO2 saturation greater than 95% on room air. Thermoregulation: warm ph blanket given to patient. 16:21 Initial lab(s) drawn, by me, sent to lab. Inserted saline lock: 20 gauge in right ph antecubital area, using aseptic technique. Blood collected. Flushed with 10 mL NS. 16:26 Head C Spine Mpr Wo Con In Process Unspecified. EDMS 16:27 Chest Abd Pelvis Wo Con In Process Unspecified. EDMS 16:40 Katlyn Wodoruff, RN is Primary Nurse. ph 16:47 Shoulder Left (2 View) XRAY In Process Unspecified. EDMS 17:47 No provider procedures requiring assistance completed. IV discontinued, intact, ph bleeding controlled, No redness/swelling at site. Pressure dressing applied. Sling applied to left arm. Administered Medications: 16:20 Drug: HYDROmorphone IVP 1 mg IVP once Route: IVP; Site: right antecubital; ph 19:02 Follow up: Response: No adverse reaction; RASS: Alert and Calm (0) ph 17:47 Not Given (Patient Refused; allergicc): ondansetron 4 mg IVP once; over 2 minutes ph 17:47 Drug: HYDROmorphone IVP 1 mg IVP once Route: IVP; Site: right antecubital; ph 19:02 Follow up: Response: No adverse reaction; Pain is decreased; RASS: Alert and Calm (0) ph Medication: 16:21 VIS not applicable for this client. ph Intake: 16:04 PO: 0ml; Total: 0ml. ph Output: 16:04 Urine: 0ml; Total: 0ml. ph Outcome: 17:39 Discharge ordered by . sp3 19:00 Discharged to home ambulatory, with family, ph 19:00 Condition: good 19:00 Discharge instructions given to patient, Instructed on discharge instructions, follow up and referral plans. medication usage, Demonstrated understanding of instructions, follow-up care, medications, Prescriptions given X 1, 19:03 Patient left the ED. ph Signatures: Dispatcher [employer] Katlyn Denton RN RN ph Patel, Setul, MD MD sp3
[2023-11-05 19:23] VITALS: BP 118/78; TEMP 97.9; O2SAT 99
== END 2023-11-05 19:03 | disposition home or self-care (01) ==
LOC: ER 15:56
DX: S42.302A Unspecified fracture of shaft of humerus, left arm, initial encounter for closed fracture (principal); W18.30XA Fall on same level, unspecified, initial encounter
CPT/HCPCS: 36415; 70450; 71250; 72125; 74176; 80048; 85025; 96374; 99285; J1170